=== PATIENT | male | born 1975 | race Hispanic/Latino ===

== ENCOUNTER → 2024-06-02 | Day surgery (SDC) | payer BC ==
[~2024-06-02] MED LIST: CRESTOR40 MG PO; LIDOCAINE HCL 2% LOCAL INJ 5 ML SDV VIAL INJ ONE; MIDAZOLAM HCL 2 MG/2 ML VIAL ONE; PROPOFOL IV EMULSION 10 MG/ML 20 ML VIAL IV ONE
[2024-06-02] MEDS: LACTATED RINGER'S 1,000 ML ONE (12:04)
[2024-06-02 13:46] VITALS: TEMP 97.4
[2024-06-02 14:15] VITALS: BP 125/80; PULSE 69; RESP 16; O2SAT 97
== END | disposition home or self-care (01) ==
LOC: OR 10:25
PROVIDERS: ATTEND Internal Medicine Gastroenterology
DX: Z12.11 Encounter for screening for malignant neoplasm of colon (principal); D12.0 Benign neoplasm of cecum; D12.3 Benign neoplasm of transverse colon; D12.4 Benign neoplasm of descending colon; K62.1 Rectal polyp; K59.00 Constipation, unspecified; K62.5 Hemorrhage of anus and rectum; K64.1 Second degree hemorrhoids; I10 Essential (primary) hypertension; E78.5 Hyperlipidemia, unspecified; I45.10 Unspecified right bundle-branch block; F17.200 Nicotine dependence, unspecified, uncomplicated; Z01.810 Encounter for preprocedural cardiovascular examination; Z79.899 Other long term (current) drug therapy; Z68.36 Body mass index [BMI] 36.0-36.9, adult
CPT/HCPCS: 45380; 45385; 93005; J2001; J2250; J2704; J7121